=== PATIENT | male | born 1970 ===

== ENCOUNTER → 2021-09-20 17:10 | Outpatient (CLI) | payer OTHER, SELFPAY ==
[2021-09-21 19:48] LABS: COVID19 - ORCAS (NP or Nasal) Negative (Negative)
== END ==
PROVIDERS: Family Provider Family Medicine; PCP Physician Assistant Medical; Visit Provider Physician Assistant
DX: Z20.822 Contact with and (suspected) exposure to COVID-19 (principal)
CPT/HCPCS: U0003

== ENCOUNTER → 2021-12-27 11:00 | Outpatient (CLI) | payer OTHER, SELFPAY ==
--- NOTE | 2021-12-27 12:20 | DI.CT.S_ITS ---
PROCEDURE: CT MASTOID TEMPORAL INDICATIONS: Chronic mastoiditis, left ear COMPARISON: None. TECHNIQUE: Noncontrast 0.6 mm thick direct axial and coronal sections acquired through each temporal bone separately. FINDINGS: Image quality: Excellent. RIGHT: External auditory canal: Canal has a normal appearance. Middle ear: The middle ear structures, including the ossicles and tympanic membrane, appear normal. No abnormal fluid or soft tissue density. Inner ear: Inner ear is normally formed and appears unremarkable. Facial nerve appears normal throughout is course. Mastoids: Mastoid air cells are clear. LEFT: External auditory canal: Canal has a normal appearance. Middle ear: There is fluid and debris filling the tympanic cavity with partial sparing of the epitympanicum. Minimal fluid in debris noted at the ralph ad antrum. There is mild asymmetric blunting of the scutum. Ossicular chain intact. Tympanic membrane unremarkable Inner ear: Inner ear is normally formed and appears unremarkable. Facial nerve appears normal throughout its course. Mastoids: Debris and fluid fills the mastoid air cells with the septal osseous sclerosis, but no evidence of coalescence. MISCELLANEOUS: Visualized surrounding bones appear unremarkable. Visualized intracranial structures, including the cerebellopontine angle cisterns, appear normal. IMPRESSION: 1. Fluid and debris in the left middle ear with minimal blunting of the scutum but no ossicular chain erosion. While probably inflammatory, consider follow-up MRI to exclude cholesteatoma. 2. Fluid and debris in the left mastoid is consistent with inflammatory or postinflammatory debris. Mastoid sclerosis present without coalescence. Approved by: Saravanan Chavez M.D. on 12/27/2021 at 14:19
== END ==
PROVIDERS: Family Provider Family Medicine; PCP Physician Assistant Medical; Referring Provider Otolaryngology; Visit Provider Otolaryngology
DX: H70.12 Chronic mastoiditis, left ear (principal)
CPT/HCPCS: 70480

== ENCOUNTER → 2022-05-11 07:00 | Outpatient (CLI) | payer OTHER, SELFPAY ==
[2022-05-11 19:18] LABS: COVID19 - ORCAS (NP or Nasal) Negative (Negative)
== END ==
PROVIDERS: Family Provider Family Medicine; PCP Physician Assistant Medical; Visit Provider Physician Assistant Medical
DX: Z20.822 Contact with and (suspected) exposure to COVID-19 (principal)
CPT/HCPCS: U0003

== ENCOUNTER → 2022-08-28 11:00 | Outpatient (CLI) | payer OTHER, SELFPAY ==
--- NOTE | 2022-08-28 11:02 | DI.MRI.S_ITS ---
PROCEDURE: MR THORACIC SPINE WO CON INDICATIONS: Thoracic pain with radiculopathy, multiple traumas TECHNIQUE: Noncontrast sagittal T1 spine echo and T2 fast spin echo, sagittal STIR, and T2 fast spin echo through the thoracic spine. COMPARISON: None. FINDINGS: Image quality: Excellent. Alignment and Curvature: There is normal bony alignment. Bone Marrow: Vertebral body hemangiomas noted at T9 and T11. Vertebral body height and alignment is maintained. No marrow edema present Spinal Cord: Visualized spinal cord is normal in size and signal. Paraspinous Soft Tissues: No paravertebral masses. Miscellaneous: Small disc 2-3 mm central protrusion noted at T9-10 with inferior migration. Right subarticular protrusion at T8-9. Broad-based protrusion subarticular left at T11-12 all result in mild central stenosis. IMPRESSION: Small disc protrusions in the lower thoracic spine results in mild central stenosis without cord compression. Incidental vertebral body hemangiomas Approved by: Saravanan Chavez M.D. on 08/28/2022 at 14:37
== END ==
PROVIDERS: Family Provider Family Medicine; PCP Physician Assistant Medical; Referring Provider Physician Assistant; Visit Provider Physician Assistant
DX: M51.14 Intervertebral disc disorders with radiculopathy, thoracic region (principal); M48.04 Spinal stenosis, thoracic region; D18.09 Hemangioma of other sites
CPT/HCPCS: 72146

== ENCOUNTER → 2022-09-06 10:20 | Outpatient (CLI) | payer OTHER, SELFPAY ==
[2022-09-06 19:38] LABS: Add Manual Diff / Slide Review NO; Basophils Absolute Auto 100 /uL (0-100); Basophils Percent Auto 0.8 % (0-2); Eosinophils Absolute Auto 300 /uL (0-450); Eosinophils Percent Auto 3.3 % (2-4); Hematocrit 45.2 % (41-53); Hemoglobin 15.8 g/dL (13.5-17.5); Lymphocytes Absolute Auto 1500 /uL (1100-4500); Lymphocytes Percent Auto 18.7 % (25-40); Mean Corpuscular HGB Conc 34.9 % (30-36); Mean Corpuscular Hemoglobin 30.9 PG (26-34); Mean Corpuscular Volume 88.6 fL (80-100); Monocytes Absolute Auto 600 /uL (0-900); Monocytes Percent Auto 7.7 % (3-14); Neutrophils Absolute Auto 5500 /uL (1500-7000); Neutrophils Percent Auto 69.5 % (50-75); Platelet Count 310 X10^3/uL (150-400); Red Cell Distribution Width 13.7 % (11.6-14.8); White Blood Cell Count 7.9 X10^3/uL (4.5-11.0)
[2022-09-06 20:01] LABS: Alanine Aminotransferase 80 IU/L (<50); Albumin 4.3 g/dL (3.5-5.0); Albumin Globulin Ratio 1.5 (1.0-2.8); Alkaline Phosphatase 118 U/L (38-126); Aspartate Aminotransferase 45 IU/L (17-59); Bilirubin Total 0.6 mg/dL (0.2-1.3); Blood Urea Nitrogen 17 mg/dL (9-20); Calcium 9.4 mg/dL (8.4-10.2); Carbon Dioxide 29 mmol/L (22-32); Chloride 99 mmol/L (98-107); Cholesterol 285 mg/dL (140-199); Estimated Glomerular Filt Rate > 60 mL/min (>60); Globulin 2.9 g/dL (1.7-4.1); Glucose 99 mg/dL (70-100); HDL Cholesterol 38 mg/dL (40-60); HEMOLYSIS < 15 (0-50); LDL Cholesterol Calculated 218 mg/dL (<100); Potassium 4.3 mmol/L (3.4-5.1); Sodium 138 mmol/L (137-145); Total Protein 7.2 g/dL (6.3-8.2); Triglycerides 146 mg/dL (35-150)
[2022-09-06 20:12] LABS: Hemoglobin A1C% w Est Avg Glu 5.4 % (4.0-6.0)
[2022-09-06 20:31] LABS: Prostate Specific Antigen Scrn 1.25 ng/mL (0.1-4.0)
== END ==
PROVIDERS: Family Provider Family Medicine; PCP Physician Assistant; Visit Provider Physician Assistant
DX: Z13.220 Encounter for screening for lipoid disorders (principal); I10 Essential (primary) hypertension; Z12.5 Encounter for screening for malignant neoplasm of prostate
CPT/HCPCS: 80053; 80061; 83036; 85025; G0103

== ENCOUNTER 2022-09-14 10:38 | Emergency (ER) | payer OTHER, SELFPAY ==
[2022-09-14 10:50] VITALS: BP 164/99; PULSE 92; RESP 16; TEMP 35.8; O2SAT 98; BMI 31.4
[2022-09-14 11:23] LABS: Add Manual Diff / Slide Review NO; Basophils Absolute Auto 100 /uL (0-100); Basophils Percent Auto 0.6 % (0-2); Eosinophils Absolute Auto 200 /uL (0-450); Eosinophils Percent Auto 2.1 % (2-4); Hematocrit 43.8 % (41-53); Lymphocytes Absolute Auto 1300 /uL (1100-4500); Lymphocytes Percent Auto 15.9 % (25-40); Mean Corpuscular HGB Conc 34.3 % (30-36); Mean Corpuscular Hemoglobin 30.3 PG (26-34); Mean Corpuscular Volume 88.3 fL (80-100); Monocytes Absolute Auto 800 /uL (0-900); Monocytes Percent Auto 9.2 % (3-14); Neutrophils Absolute Auto 6000 /uL (1500-7000); Neutrophils Percent Auto 72.2 % (50-75); Platelet Count 188 X10^3/uL (150-400); Red Blood Cell Count 4.96 X10^6/uL (4.5-5.9); Red Cell Distribution Width 13.9 % (11.6-14.8); White Blood Cell Count 8.4 X10^3/uL (4.5-11.0)
[2022-09-14 11:29] LABS: Alanine Aminotransferase 236 IU/L (<50); Albumin 4.3 g/dL (3.5-5.0); Albumin Globulin Ratio 1.3 (1.0-2.8); Alkaline Phosphatase 179 U/L (38-126); Aspartate Aminotransferase 92 IU/L (17-59); BUN Creatinine Ratio 19.1 (6-22); Bilirubin Total 1.1 mg/dL (0.2-1.3); Blood Urea Nitrogen 17 mg/dL (9-20); Carbon Dioxide 27 mmol/L (22-32); Chloride 103 mmol/L (98-107); Estimated Glomerular Filt Rate > 60 mL/min (>60); Globulin 3.3 g/dL (1.7-4.1); Glucose 97 mg/dL (70-100); HEMOLYSIS 38 (0-50); Lipase 54 U/L (23-300); Potassium 3.9 mmol/L (3.4-5.1); Sodium 139 mmol/L (137-145); Total Protein 7.6 g/dL (6.3-8.2)
[2022-09-14] MEDS: BISACODYL 10 MG SUPP PR (12:48)
--- NOTE | 2022-09-14 13:00 | PC.NURSE ---
Patient inserting own suppository, instructed in how to do this.
--- NOTE | 2022-09-14 13:26 | DI.US.S_ITS ---
PROCEDURE: US ABDOMEN LIMITED INDICATIONS: RUQ, elevated transaminasesm, nausea TECHNIQUE: Real-time focused scanning was performed of the abdomen, with image documentation. COMPARISON: [facility], CT, CT ABDOMEN PELVIS W CON, 09/14/2022, 13:49. FINDINGS: Multifocal hypoechoic masses are seen within the liver as demonstrated on CT performed earlier the same day, highly suspicious for hepatic metastases. The gallbladder appears normal without gallstones or gallbladder wall thickening. There is no pericholecystic fluid. Sonographic Bui sign is negative. Common hepatic duct and common bile ducts are not well visualized secondary to bowel gas, but the common bile duct appears to measure up to 6 mm in diameter. Pancreas is not well visualized due to the presence of bowel gas. IMPRESSION: Multiple hypoechoic hepatic masses are highly suspicious for hepatic metastatic disease, better demonstrated on the CT of the abdomen and pelvis performed earlier the same day. Approved by: Guero Del Castillo M.D. on 09/14/2022 at 16:01
--- NOTE | 2022-09-14 13:35 | ED_ITS ---
HPI - Abdominal Pain <FAITH Jensen - Last Filed: 09/14/22 17:22> General Chief Complaint: Abdominal Pain Stated Complaint: ABD PAIN Time Seen by Provider: 09/14/22 12:28 Source: patient Mode of arrival: Ambulatory History of Present Illness HPI narrative: This is a 52-year-old gentleman who presents to the emergency department complaining of worsening abdominal pain over the last 1-2 weeks. Patient states that he had labs drawn on 09/06/2022 when he was having some mild abdominal pain, those came back with elevated cholesterol, mildly elevated ALT. Patient states he has had periumbilical hernia repair many years ago. Denies any other abdominal surgery. States that he is had intermittent abdominal pain with distention, states it is periumbilical, intermittently lower left quadrant but primarily in the right upper quadrant. He states his mother has history of severe gallstone issues. Related Data Previous Rx's Medication Instructions Recorded losartan 50 mg tablet 50 mg PO DAILY #30 tabs 07/06/22 cyclobenzaprine 10 mg tablet 10 mg PO TID PRN muscle spasm #30 08/20/22 tabs gabapentin 300 mg capsule 300 mg PO TID nerve pain #90 caps 08/20/22 oxycodone 10 mg tablet 10 mg PO BEDTIME PRN pain (scale 08/20/22 score 7-10) #5 tabs amoxicillin 875 mg-potassium 1 tab PO BID 7 days #14 tabs 09/14/22 clavulanate 125 mg tablet oxycodone 5 mg tablet 5 mg PO TID PRN pain #30 tabs 09/14/22 magnesium citrate 150 ml PO BID PRN constipation 09/17/22 #296 mL sertraline 25 mg tablet 25 mg PO .Q AM #30 tabs 09/17/22 Allergies Allergy/AdvReac Type Severity Reaction Status Date / Time lisinopril Allergy Unknown Verified 09/17/22 09:12 Review of Systems <FAITH Jensen - Last Filed: 09/14/22 17:22> Review of Systems Narrative: Review of systems is negative for acute abnormalities unless otherwise noted in HPI Patient History <FAITH Jensen - Last Filed: 09/14/22 17:22> Medical History Essential (primary) hypertension (~2017) Hearing loss History of recurrent ear infection Surgical History Anesthesia History of adenoidectomy History of ear surgery History of elbow surgery (~2014) History of hernia repair (~2005) History of placement of ear tubes History of tympanoplasty Family History Father History of heart disease Stroke Grandmother Cancer Social History Smoking Status: Former smoker Smoking Status: Former smoker alcohol intake frequency: holidays/special occasions only Substance Use Type: does not use Exam <FAITH Jensen - Last Filed: 09/14/22 17:22> Narrative Exam Narrative: Reviewed vitals signs and nursing notes. General: cooperative, uncomfortable, in no acute distress, well groomed HEENT: symmetrical facial expressions, moist mucous membranes Cardiovascular: regular rate and rhythm, no peripheral edema, warm extremities Respiratory: normal effort, able to speak in complete sentences, without wheezing, stridor, or abnormal breath sounds. No retractions or tachypnea. GI: abdomen soft, tender to palpation to the right upper quadrant and to the left lower quadrant, mildly distended, patient is slightly guarding without rebound tenderness or exquisite tenderness. MSK: moves all extremities, neurovascularly intact, no weakness, normal tone Skin: brisk capillary refill, without pallor or erythema Neuro: normal speech and cognition, A&O x3, ambulatory, clear speech Psych: mental status is grossly normal, congruent mood, normal affect, pleasant and cooperative Initial Vital Signs Initial Vital Signs: Vital Signs Temperature 96.4 F L 09/14/22 10:50 Pulse Rate 92 H 09/14/22 10:50 Respiratory Rate 16 09/14/22 10:50 Blood Pressure 164/99 H 09/14/22 10:50 Pulse Oximetry 98 09/14/22 10:50 Oxygen Delivery Method 09/14/22 10:50 <Lety Silva DO - Last Filed: 09/18/22 02:46> Initial Vital Signs Initial Vital Signs: Vital Signs Temperature 96.4 F L 09/14/22 10:50 Pulse Rate 92 H 09/14/22 10:50 Respiratory Rate 16 09/14/22 10:50 Blood Pressure 164/99 H 09/14/22 10:50 Pulse Oximetry 98 09/14/22 10:50 Oxygen Delivery Method 09/14/22 10:50 Course <Karla Jeri Enrique, [facility] - Last Filed: 09/14/22 17:22> Orders Ordered: Discontinued Medications Bisacodyl (Bisacodyl 10 Mg Supp) 10 mg NJ NOW ONE Stop: 09/14/22 12:29 Last Admin: 09/14/22 12:48 Dose: 10 mg Documented By: TR Lactated Ringer's (Lactated Ringers) 1,000 mls @ 1,000 mls/hr IV BOLUS ONE Stop: 09/14/22 14:33 Last Infusion: 09/14/22 15:32 Dose: 0 mls/hr Documented By: Admin: 09/14/22 13:58 Dose: 1,000 mls/hr Documented By: ELISHA Oxycodone HCl (Oxycodone Ir 5 Mg Tablet) 10 mg PO NOW ONE Stop: 09/14/22 16:47 Last Admin: 09/14/22 16:57 Dose: 10 mg Documented By: ELISHA Reevaluation(s) Reevaluation #1: Waiting for results from ultrasound and CT scan, lab work is resulting, patient reports that he feels well, denies any need for pain medication at this time Time: 14:30 Reevaluation #2: Reviewed CT results with Blank Anthony from patient's primary care office who called back stating that she has patient's to see today in the clinic and patient can follow-up with her primary care provider. Time: 15:51 Reevaluation #3: Consultation made with oncology over at [facility], oncologist recommends patient follow-up with Dr. Ontiveros as an outpatient, a consultation was placed by myself, ask his primary care provider to put in an official referral. Oncologist as for additional lab work which includes CEA, CA 19-199, and CT chest imaging. Patient is finishing these tests right now. Pt is to Follow-up with Dr. ontiveros next week after meeting with Danielle kauffman. He will need a social work order referral from the oncology office as well as a CT or ultrasound- guided biopsy.. Vital Signs Vital signs: Vital Signs - 8 hr 09/14/22 10:50 09/14/22 13:59 09/14/22 13:59 Temperature 96.4 F L Pulse Rate 92 H 88 Respiratory Rate 16 Blood Pressure 164/99 H 183/99 H Pulse Oximetry 98 99 Oxygen Delivery Method Room Air 09/14/22 15:50 09/14/22 15:50 09/14/22 15:53 Temperature Pulse Rate 79 Respiratory Rate Blood Pressure 195/106 H 171/86 H Pulse Oximetry 100 Oxygen Delivery Method 09/14/22 15:53 Temperature Pulse Rate 84 Respiratory Rate Blood Pressure Pulse Oximetry 98 Oxygen Delivery Method <Lety iSlva DO - Last Filed: 09/18/22 02:46> Orders Ordered: Discontinued Medications Bisacodyl (Bisacodyl 10 Mg Supp) 10 mg NJ NOW ONE Stop: 09/14/22 12:29 Last Admin: 09/14/22 12:48 Dose: 10 mg Documented By: TR Lactated Ringer's (Lactated Ringers) 1,000 mls @ 1,000 mls/hr IV BOLUS ONE Stop: 09/14/22 14:33 Last Infusion: 09/14/22 15:32 Dose: 0 mls/hr Documented By: Admin: 09/14/22 13:58 Dose: 1,000 mls/hr Documented By: ELISHA Oxycodone HCl (Oxycodone Ir 5 Mg Tablet) 10 mg PO NOW ONE Stop: 09/14/22 16:47 Last Admin: 09/14/22 16:57 Dose: 10 mg Documented By: ELISHA Vital Signs Vital signs: Vital Signs - 8 hr 09/14/22 10:50 09/14/22 13:59 09/14/22 13:59 Temperature 96.4 F L Pulse Rate 92 H 88 Respiratory Rate 16 Blood Pressure 164/99 H 183/99 H Pulse Oximetry 98 99 Oxygen Delivery Method Room Air 09/14/22 15:50 09/14/22 15:50 09/14/22 15:53 Temperature Pulse Rate 79 Respiratory Rate Blood Pressure 195/106 H 171/86 H Pulse Oximetry 100 Oxygen Delivery Method 09/14/22 15:53 Temperature Pulse Rate 84 Respiratory Rate Blood Pressure Pulse Oximetry 98 Oxygen Delivery Method MDM - Abdominal Pain <FAITH Jensen - Last Filed: 09/14/22 17:22> Lab Data Result diagrams: 09/14/22 11:00 09/14/22 11:00 Labs: Lab Results 09/14/22 09/14/22 09/14/22 Range/Units 11:00 11:00 11:00 WBC 8.4 (4.5-11.0) X10^3/uL RBC 4.96 (4.5-5.9) X10^6/uL Hgb 15.0 (13.5-17.5) g/dL Hct 43.8 (41-53) % MCV 88.3 (80-100) fL MCH 30.3 (26-34) PG MCHC 34.3 (30-36) % RDW 13.9 (11.6-14.8) % Plt Count 188 (150-400) X10^3/uL Neut % (Auto) 72.2 (50-75) % Lymph % (Auto) 15.9 L (25-40) % [place] % (Auto) 9.2 (3-14) % Eos % (Auto) 2.1 (2-4) % Baso % (Auto) 0.6 (0-2) % Neut # (Auto) 6000 (6068-3103) /uL Lymph # (Auto) 1300 (2478-1409) /uL [place] # (Auto) 800 (0-900) /uL Eos # (Auto) 200 (0-450) /uL Baso # (Auto) 100 (0-100) /uL PT (10.1-12.7) SECONDS INR (0.9-1.3) APTT Sodium 139 (137-145) mmol/L Potassium 3.9 (3.4-5.1) mmol/L Chloride 103 (98-107) mmol/L Carbon Dioxide 27 (22-32) mmol/L BUN 17 (9-20) mg/dL Creatinine 0.89 (0.66-1.25) mg/dL Estimated GFR > 60 (>60) mL/min BUN/Creatinine Ratio 19.1 (6-22) Glucose 97 (70-100) mg/dL Lactate (0.7-2.1) mmol/L Calcium 9.0 (8.4-10.2) mg/dL Magnesium (1.6-2.3) mg/dL Total Bilirubin 1.1 (0.2-1.3) mg/dL AST 92 H (17-59) IU/L ALT 236 H (<50) IU/L Alkaline Phosphatase 179 H D (38-126) U/L Total Creatine Kinase 76 (55-170) U/L CK-MB (CK-2) TNP CK-MB (CK-2) Rel Index TNP Troponin I < 0.012 (0.01-0.034) ng/mL C-Reactive Protein 1.4 H (<1.0) mg/dL Total Protein 7.6 (6.3-8.2) g/dL Albumin 4.3 (3.5-5.0) g/dL Globulin 3.3 (1.7-4.1) g/dL Albumin/Globulin Ratio 1.3 (1.0-2.8) Lipase 54 (23-300) U/L Carcinoembryonic Ag (0.1-3.0) ng/mL CA 19-9 Antigen Procalcitonin 0.09 (<0.5) ng/mL Urine Color Urine Appearance Urine pH (4.5-8.0) Ur Specific [place] (1.000-1.035) Urine Protein (Negative) Urine Glucose (UA) (Negative) g/dL Urine Ketones (NEGATIVE) Urine Occult Blood (Negative) Urine Nitrate (Negative) Urine Bilirubin (NEGATIVE) Urine Urobilinogen (0.2) E.U./dL Ur Leukocyte Esterase (NEGATIVE) Urine RBC (0-5/HPF) Urine WBC (0-5/HPF) Ur Squamous Epith Cells (0-5/HPF) Urine Bacteria (None) Ur Culture Indicated? 09/14/22 09/14/22 09/14/22 Range/Units 11:00 11:00 11:00 WBC (4.5-11.0) X10^3/uL RBC (4.5-5.9) X10^6/uL Hgb (13.5-17.5) g/dL Hct (41-53) % MCV (80-100) fL MCH (26-34) PG MCHC (30-36) % RDW (11.6-14.8) % Plt Count (150-400) X10^3/uL Neut % (Auto) (50-75) % Lymph % (Auto) (25-40) % [place] % (Auto) (3-14) % Eos % (Auto) (2-4) % Baso % (Auto) (0-2) % Neut # (Auto) (6053-3549) /uL Lymph # (Auto) (5167-9754) /uL [place] # (Auto) (0-900) /uL Eos # (Auto) (0-450) /uL Baso # (Auto) (0-100) /uL PT 12.0 (10.1-12.7) SECONDS INR 1.0 (0.9-1.3) APTT Cancelled Sodium (137-145) mmol/L Potassium (3.4-5.1) mmol/L Chloride (98-107) mmol/L Carbon Dioxide (22-32) mmol/L BUN (9-20) mg/dL Creatinine (0.66-1.25) mg/dL Estimated GFR (>60) mL/min BUN/Creatinine Ratio (6-22) Glucose (70-100) mg/dL Lactate 1.1 (0.7-2.1) mmol/L Calcium (8.4-10.2) mg/dL Magnesium 2.2 (1.6-2.3) mg/dL Total Bilirubin (0.2-1.3) mg/dL AST (17-59) IU/L ALT (<50) IU/L Alkaline Phosphatase (38-126) U/L Total Creatine Kinase (55-170) U/L CK-MB (CK-2) CK-MB (CK-2) Rel Index Troponin I (0.01-0.034) ng/mL C-Reactive Protein (<1.0) mg/dL Total Protein (6.3-8.2) g/dL Albumin (3.5-5.0) g/dL Globulin (1.7-4.1) g/dL Albumin/Globulin Ratio (1.0-2.8) Lipase (23-300) U/L Carcinoembryonic Ag (0.1-3.0) ng/mL CA 19-9 Antigen Procalcitonin (<0.5) ng/mL Urine Color Urine Appearance Urine pH (4.5-8.0) Ur Specific [place] (1.000-1.035) Urine Protein (Negative) Urine Glucose (UA) (Negative) g/dL Urine Ketones (NEGATIVE) Urine Occult Blood (Negative) Urine Nitrate (Negative) Urine Bilirubin (NEGATIVE) Urine Urobilinogen (0.2) E.U./dL Ur Leukocyte Esterase (NEGATIVE) Urine RBC (0-5/HPF) Urine WBC (0-5/HPF) Ur Squamous Epith Cells (0-5/HPF) Urine Bacteria (None) Ur Culture Indicated? 09/14/22 09/14/22 09/14/22 Range/Units 13:26 14:25 15:45 WBC (4.5-11.0) X10^3/uL RBC (4.5-5.9) X10^6/uL Hgb (13.5-17.5) g/dL Hct (41-53) % MCV (80-100) fL MCH (26-34) PG MCHC (30-36) % RDW (11.6-14.8) % Plt Count (150-400) X10^3/uL Neut % (Auto) (50-75) % Lymph % (Auto) (25-40) % [place] % (Auto) (3-14) % Eos % (Auto) (2-4) % Baso % (Auto) (0-2) % Neut # (Auto) (7969-0153) /uL Lymph # (Auto) (5598-2614) /uL [place] # (Auto) (0-900) /uL Eos # (Auto) (0-450) /uL Baso # (Auto) (0-100) /uL PT (10.1-12.7) SECONDS INR (0.9-1.3) APTT Sodium (137-145) mmol/L Potassium (3.4-5.1) mmol/L Chloride (98-107) mmol/L Carbon Dioxide (22-32) mmol/L BUN (9-20) mg/dL Creatinine (0.66-1.25) mg/dL Estimated GFR (>60) mL/min BUN/Creatinine Ratio (6-22) Glucose (70-100) mg/dL Lactate (0.7-2.1) mmol/L Calcium (8.4-10.2) mg/dL Magnesium (1.6-2.3) mg/dL Total Bilirubin (0.2-1.3) mg/dL AST (17-59) IU/L ALT (<50) IU/L Alkaline Phosphatase (38-126) U/L Total Creatine Kinase (55-170) U/L CK-MB (CK-2) CK-MB (CK-2) Rel Index Troponin I (0.01-0.034) ng/mL C-Reactive Protein (<1.0) mg/dL Total Protein (6.3-8.2) g/dL Albumin (3.5-5.0) g/dL Globulin (1.7-4.1) g/dL Albumin/Globulin Ratio (1.0-2.8) Lipase (23-300) U/L Carcinoembryonic Ag 17.9 H (0.1-3.0) ng/mL CA 19-9 Antigen QNS Procalcitonin (<0.5) ng/mL Urine Color Yellow Urine Appearance Clear Urine pH 6.5 (4.5-8.0) Ur Specific [place] <=1.005 (1.000-1.035) Urine Protein Negative (Negative) Urine Glucose (UA) Negative (Negative) g/dL Urine Ketones 1+ H (NEGATIVE) Urine Occult Blood Negative (Negative) Urine Nitrate Negative (Negative) Urine Bilirubin Negative (NEGATIVE) Urine Urobilinogen 0.2 (0.2) E.U./dL Ur Leukocyte Esterase Negative (NEGATIVE) Urine RBC None seen (0-5/HPF) Urine WBC None seen (0-5/HPF) Ur Squamous Epith Cells 1-5 /hpf (0-5/HPF) Urine Bacteria None seen (None) Ur Culture Indicated? Cult not indicated Imaging Data CT scan - abdomen/pelvis: Radiologist's Impression: PROCEDURE:? CT ABDOMEN PELVIS W CON ? INDICATIONS:? gallstones and diverticulitis? LLQ tender, RUQ tender ? TECHNIQUE:? After the administration of oral and intravenous contrast, axial sections were acquired from the lung bases to the pubic symphysis.? Coronal and sagittal reformats were performed.? For radiation dose reduction, the following was used:? automated exposure control, adjustment of mA and/or kV according to patient size.? ? COMPARISON:None. ? FINDINGS:? Image quality:? Excellent.? ? Lung bases:? Unremarkable except for a 2 mm far peripheral nodule seen within the right mid lung, middle lobe, series 3, image 3.? .? ? Heart:? No significant findings. ? ? ABDOMEN: Liver:? Multifocal hepatic metastatic disease.? This is comprised of small and moderate-sized solid masses scattered within the liver parenchyma of all hepatic segments.? No biliary distention is associated..? ? Gallbladder:? Normal.? ? Biliary ducts:? Unremarkable.? ? Pancreas:? There is a pancreatic head mass which extends into the fatty soft tissues of the retroperitoneum and appears to abut and possibly invade the anterior border of the main portal vein just above its origin, as seen on series 2, image 32. A small nodule lies at the pete hepatis measuring slightly less than 1 cm and extension of tumor from the pancreatic head mass into the fatty soft tissues extends to abut the posterior border of the gastric antrum.? There are several small lymph nodes and indistinctly marginated lymph nodes at the posterior aortocaval space and retrocaval space seen, for example, series 2, image 45.? This is a worrisome finding for representing additional early metastatic disease. Spleen:? Unremarkable.? ? Adrenal Glands:? Unremarkable.? ? Kidneys and Ureters:? Unremarkable.? ? ? Stomach and Bowel:? Stomach, small bowel loops, and colon are unremarkable.? Peritoneum:? No abnormal intraperitoneal fluid.? No free air.? ? Ventral Wall: ? No hernia.? Abdominal Nodes:? No retroperitoneal or mesenteric adenopathy by size criteria but the presence of an increased number of small nodes and several indistinctly marginated nodes discussed above at the retroperitoneum, aortocaval space and retrocaval space raises concern for early felix metastatic disease..? Vessels:? Aorta and inferior vena cava are normal in size.? ? PELVIS: Pelvic Organs:? Unremarkable.? ? Bladder:? Unremarkable.? ? Pelvic Nodes: No enlarged lymph nodes.? Miscellaneous: No inguinal hernias are seen. ? ? Extensive sigmoid diverticulosis without definite acute diverticulitis is present.? There is a slight amount of free fluid deep within the lower posterior midline pelvis. ? Bones:? Unremarkable.? ? ? IMPRESSION:? ? ? 1.? Pancreatic head mass.? Extension of tumor from this mass into the adjacent retroperitoneal fat and along the anterior border of the main portal vein. ? 2.? Multifocal hepatic metastatic disease without biliary distension, involving all hepatic segments. ? 3.? An increased number of small nodes and several indistinctly marginated nodes are present at the aortocaval space and retrocaval space, worrisome for early felix metastatic disease. ? 4.? Single identified 2 mm nonspecific lung nodule right middle lobe peripherally, potentially an early manifestation of pulmonary metastatic disease. ? 5.? Extensive sigmoid diverticulosis but without definite acute diverticulitis at this time.? A slight amount of free peritoneal fluid is seen deep within the lower posterior midline pelvis.? ? Dictated by: Johnnie Owen M.D. on 09/14/2022 at 15:06 ? ? Approved by: Johnnie Owen M.D. on 09/14/2022 at 15:17 ? Chest Ct: Radiologist's Impression: PROCEDURE:? CT CHEST W CON ? INDICATIONS:? malignancy, eval for metastasis ? TECHNIQUE:? After the administration of intravenous contrast, 5 mm thick sections acquired from the pulmonary apices to the posterior costophrenic angles.? 1 mm axial lung, 5 mm thick coronal and sagittal reformats and 7 mm axial MIP were acquired.? For radiation dose reduction, the following was used:? automated exposure control, adjustment of mA and/or kV according to patient size.? ? COMPARISON:? [facility], US, US ABDOMEN LIMITED, 09/14/2022, 15:12.? [facility], CT, CT ABDOMEN PELVIS W CON, 09/14/2022, 13:49. ? FINDINGS:? Image quality:? Excellent.? ? Lungs and pleura:? No acute air space opacities that would suggest presence of pneumonia. ?The 2 mm far peripheral right middle lobe pulmonary nodule seen during CT scanning earlier same day is again noted, and within the anterior margin of the left upper lobe seen on there is a similar sized nodule perhaps measuring 3 mm, and then at the more superior far posterior border of the left upper lobe abutting the high margin of the major fissure there is a 2nd similar size nodule which measures 2 x 3 mm, 01/5913.? Finally, at the lateral border of the right lower lobe more , mid chest level, there is a 2 x 3 mm nodule ().? No pleural effusions or pneumothorax.? Central and peripheral airways are patent and normal in caliber.? ? Mediastinum:? Heart size is normal.? No pericardial effusion.? No mediastinal or hilar adenopathy by size criteria.? Thoracic aorta and central pulmonary arteries are normal in size.? Esophagus is normal in caliber.? No hiatal hernia.? ? Bones and chest wall:? No suspicious bony lesions.? No vertebral body compression fractures.? No axillary or supraclavicular adenopathy by size criteria. ? Abdomen:? Visualized upper abdominal solid organs appear normal.? Upper abdominal bowel loops are normal in caliber.? ? IMPRESSION:? There are several nonspecific small nodules within the lung parenchyma located peripherally, both within the right and left hemithorax.? In this clinical circumstance early pulmonary metastatic disease is suspected.? The small nodules would likely not be visible by PET-CT scanning ? ? Dictated by: Johnnie Owen M.D. on 09/14/2022 at 16:28 ? ? Approved by: Johnnie Owen M.D. on 09/14/2022 at 16:41 ? MDM Narrative Medical decision making narrative: This is a 52-year-old male who presents to the emergency department with periumbilical pain, right upper quadrant pain which has been ongoing for the last few weeks but became significantly worse over the last 3-4 days. Patient's lab work today came back with concerns about his elevated liver enzymes which are new since his lab work on 09/06/2022. Today his AST is 92, 1 week ago is 45, ALT was 236, ALT previously was 80, alk phos was 179, previously is 118, CRP is mildly elevated at 1.4, lipase is 54, procalcitonin 0.09. UA is negative for WBCs, leukocyte esterase and RBCs. No leukocytosis or anemia. Patient had tenderness to the right upper quadrant and periumbilical region. Abdominal ultrasound shows multiple hyperechoic hepatic masses and is highly suspicious for hepatic metastatic disease, CT of abdomen was completed just prior to this and results showed a pancreatic head mass. Extension of tumor from this mass into the adjacent retroperitoneal fat and along the anterior border of the main portal vein. Multifocal hepatic metastatic disease without biliary distension, involving all hepatic segments. An increased number of small nodes and several indistinctly marginated nodes are present at the aortocaval space and retrocaval space, worrisome for early felix metastatic disease. Single identified 2 mm nonspecific lung nodule right middle lobe peripherally, potentially an early manifestation of pulmonary metastatic disease. Extensive sigmoid diverticulosis but without definite acute diverticulitis at this time. A slight amount of free peritoneal fluid is seen deep within the lower posterior midline pelvis. A CT chest was then ordered which shows several nonspecific small nodules within the lung parenchyma located peripherally, both within the right and left hemithorax. Early pulmonary metastatic disease suspected. These results were discussed with Blank from patient's primary care office who is arranging oncology referral for the patient. I spoke with Oncology for the hospital who recommends patient follow-up urgently with Dr. Harmon, Blank placed a referral to Dr. Ontiveros and I placed a consultation although this conversation with the on-call oncologist who told Dr. Ontiveros is likely the only method of communication that Dr. Ontiveros received. Patient will need an ultrasound guided or CT-guided biopsy, this will be completed at oncology. Patient mentioned interest in [facility], Blank from his primary care office will place referrals to both and send all imaging completed here today. Patient understands to follow-up with Dr. Kauffman, these results were discussed with him and his significant other at length,. Patient had mild tenderness to the lower left quadrant with evidence of diverticulosis without diverticulitis but some fluid was visualized in his pelvis. I gave him an antibiotic if he develops any worsening tenderness to this region. Patient lives on [facility], oncology follow-up is going to be difficult for him. Patient was given strict return precautions for any worsening of his symptoms. Was almost out of oxycodone, he has history of chronic back pain with recent MRI of lumbar spine which shows bulging disc. Patient will follow-up accordingly and all of his results were discussed with him along with the lab results to corresponding providers today. <Lety Silva, DO - Last Filed: 09/18/22 02:46> Lab Data Labs: Lab Results 09/14/22 09/14/22 09/14/22 Range/Units 11:00 11:00 11:00 WBC 8.4 (4.5-11.0) X10^3/uL RBC 4.96 (4.5-5.9) X10^6/uL Hgb 15.0 (13.5-17.5) g/dL Hct 43.8 (41-53) % MCV 88.3 (80-100) fL MCH 30.3 (26-34) PG MCHC 34.3 (30-36) % RDW 13.9 (11.6-14.8) % Plt Count 188 (150-400) X10^3/uL Neut % (Auto) 72.2 (50-75) % Lymph % (Auto) 15.9 L (25-40) % [place] % (Auto) 9.2 (3-14) % Eos % (Auto) 2.1 (2-4) % Baso % (Auto) 0.6 (0-2) % Neut # (Auto) 6000 (9609-2534) /uL Lymph # (Auto) 1300 (8930-3684) /uL [place] # (Auto) 800 (0-900) /uL Eos # (Auto) 200 (0-450) /uL Baso # (Auto) 100 (0-100) /uL PT (10.1-12.7) SECONDS INR (0.9-1.3) APTT Sodium 139 (137-145) mmol/L Potassium 3.9 (3.4-5.1) mmol/L Chloride 103 (98-107) mmol/L Carbon Dioxide 27 (22-32) mmol/L BUN 17 (9-20) mg/dL Creatinine 0.89 (0.66-1.25) mg/dL Estimated GFR > 60 (>60) mL/min BUN/Creatinine Ratio 19.1 (6-22) Glucose 97 (70-100) mg/dL Lactate (0.7-2.1) mmol/L Calcium 9.0 (8.4-10.2) mg/dL Magnesium (1.6-2.3) mg/dL Total Bilirubin 1.1 (0.2-1.3) mg/dL AST 92 H (17-59) IU/L ALT 236 H (<50) IU/L Alkaline Phosphatase 179 H D (38-126) U/L Total Creatine Kinase 76 (55-170) U/L CK-MB (CK-2) TNP CK-MB (CK-2) Rel Index TNP Troponin I < 0.012 (0.01-0.034) ng/mL C-Reactive Protein 1.4 H (<1.0) mg/dL Total Protein 7.6 (6.3-8.2) g/dL Albumin 4.3 (3.5-5.0) g/dL Globulin 3.3 (1.7-4.1) g/dL Albumin/Globulin Ratio 1.3 (1.0-2.8) Lipase 54 (23-300) U/L Carcinoembryonic Ag (0.1-3.0) ng/mL CA 19-9 Antigen Procalcitonin 0.09 (<0.5) ng/mL Urine Color Urine Appearance Urine pH (4.5-8.0) Ur Specific [place] (1.000-1.035) Urine Protein (Negative) Urine Glucose (UA) (Negative) g/dL Urine Ketones (NEGATIVE) Urine Occult Blood (Negative) Urine Nitrate (Negative) Urine Bilirubin (NEGATIVE) Urine Urobilinogen (0.2) E.U./dL Ur Leukocyte Esterase (NEGATIVE) Urine RBC (0-5/HPF) Urine WBC (0-5/HPF) Ur Squamous Epith Cells (0-5/HPF) Urine Bacteria (None) Ur Culture Indicated? 09/14/22 09/14/22 09/14/22 Range/Units 11:00 11:00 11:00 WBC (4.5-11.0) X10^3/uL RBC (4.5-5.9) X10^6/uL Hgb (13.5-17.5) g/dL Hct (41-53) % MCV (80-100) fL MCH (26-34) PG MCHC (30-36) % RDW (11.6-14.8) % Plt Count (150-400) X10^3/uL Neut % (Auto) (50-75) % Lymph % (Auto) (25-40) % [place] % (Auto) (3-14) % Eos % (Auto) (2-4) % Baso % (Auto) (0-2) % Neut # (Auto) (2003-7134) /uL Lymph # (Auto) (8058-0609) /uL [place] # (Auto) (0-900) /uL Eos # (Auto) (0-450) /uL Baso # (Auto) (0-100) /uL PT 12.0 (10.1-12.7) SECONDS INR 1.0 (0.9-1.3) APTT Cancelled Sodium (137-145) mmol/L Potassium (3.4-5.1) mmol/L Chloride (98-107) mmol/L Carbon Dioxide (22-32) mmol/L BUN (9-20) mg/dL Creatinine (0.66-1.25) mg/dL Estimated GFR (>60) mL/min BUN/Creatinine Ratio (6-22) Glucose (70-100) mg/dL Lactate 1.1 (0.7-2.1) mmol/L Calcium (8.4-10.2) mg/dL Magnesium 2.2 (1.6-2.3) mg/dL Total Bilirubin (0.2-1.3) mg/dL AST (17-59) IU/L ALT (<50) IU/L Alkaline Phosphatase (38-126) U/L Total Creatine Kinase (55-170) U/L CK-MB (CK-2) CK-MB (CK-2) Rel Index Troponin I (0.01-0.034) ng/mL C-Reactive Protein (<1.0) mg/dL Total Protein (6.3-8.2) g/dL Albumin (3.5-5.0) g/dL Globulin (1.7-4.1) g/dL Albumin/Globulin Ratio (1.0-2.8) Lipase (23-300) U/L Carcinoembryonic Ag (0.1-3.0) ng/mL CA 19-9 Antigen Procalcitonin (<0.5) ng/mL Urine Color Urine Appearance Urine pH (4.5-8.0) Ur Specific [place] (1.000-1.035) Urine Protein (Negative) Urine Glucose (UA) (Negative) g/dL Urine Ketones (NEGATIVE) Urine Occult Blood (Negative) Urine Nitrate (Negative) Urine Bilirubin (NEGATIVE) Urine Urobilinogen (0.2) E.U./dL Ur Leukocyte Esterase (NEGATIVE) Urine RBC (0-5/HPF) Urine WBC (0-5/HPF) Ur Squamous Epith Cells (0-5/HPF) Urine Bacteria (None) Ur Culture Indicated? 09/14/22 09/14/22 09/14/22 Range/Units 13:26 14:25 15:45 WBC (4.5-11.0) X10^3/uL RBC (4.5-5.9) X10^6/uL Hgb (13.5-17.5) g/dL Hct (41-53) % MCV (80-100) fL MCH (26-34) PG MCHC (30-36) % RDW (11.6-14.8) % Plt Count (150-400) X10^3/uL Neut % (Auto) (50-75) % Lymph % (Auto) (25-40) % [place] % (Auto) (3-14) % Eos % (Auto) (2-4) % Baso % (Auto) (0-2) % Neut # (Auto) (7996-0514) /uL Lymph # (Auto) (4133-0932) /uL [place] # (Auto) (0-900) /uL Eos # (Auto) (0-450) /uL Baso # (Auto) (0-100) /uL PT (10.1-12.7) SECONDS INR (0.9-1.3) APTT Sodium (137-145) mmol/L Potassium (3.4-5.1) mmol/L Chloride (98-107) mmol/L Carbon Dioxide (22-32) mmol/L BUN (9-20) mg/dL Creatinine (0.66-1.25) mg/dL Estimated GFR (>60) mL/min BUN/Creatinine Ratio (6-22) Glucose (70-100) mg/dL Lactate (0.7-2.1) mmol/L Calcium (8.4-10.2) mg/dL Magnesium (1.6-2.3) mg/dL Total Bilirubin (0.2-1.3) mg/dL AST (17-59) IU/L ALT (<50) IU/L Alkaline Phosphatase (38-126) U/L Total Creatine Kinase (55-170) U/L CK-MB (CK-2) CK-MB (CK-2) Rel Index Troponin I (0.01-0.034) ng/mL C-Reactive Protein (<1.0) mg/dL Total Protein (6.3-8.2) g/dL Albumin (3.5-5.0) g/dL Globulin (1.7-4.1) g/dL Albumin/Globulin Ratio (1.0-2.8) Lipase (23-300) U/L Carcinoembryonic Ag 17.9 H (0.1-3.0) ng/mL CA 19-9 Antigen QNS Procalcitonin (<0.5) ng/mL Urine Color Yellow Urine Appearance Clear Urine pH 6.5 (4.5-8.0) Ur Specific [place] <=1.005 (1.000-1.035) Urine Protein Negative (Negative) Urine Glucose (UA) Negative (Negative) g/dL Urine Ketones 1+ H (NEGATIVE) Urine Occult Blood Negative (Negative) Urine Nitrate Negative (Negative) Urine Bilirubin Negative (NEGATIVE) Urine Urobilinogen 0.2 (0.2) E.U./dL Ur Leukocyte Esterase Negative (NEGATIVE) Urine RBC None seen (0-5/HPF) Urine WBC None seen (0-5/HPF) Ur Squamous Epith Cells 1-5 /hpf (0-5/HPF) Urine Bacteria None seen (None) Ur Culture Indicated? Cult not indicated Discharge Plan Departure Patient Disposition: Home Clinical Impression: Pancreatic mass, Hepatic metastasis, Lung nodule, Diverticulosis Instructions: Pancreatic Cancer Activity Restrictions/Additional Instructions: Ramin, thank you for coming in today, I am sorry for the findings today as well as for your symptoms. On CT scan, a pancreatic mass was found, as well as multiple spots on your liver, and some small nodules on both sides of your lung tissue. Please schedule follow-up with Shanika or at the earliest appointment, ensure that this is urgent, please also call to schedule your 1st appointment with Dr. Ontiveros, it is pronounced Yin, and this is a great oncologist through the [facility] here at [facility]. Shanika Whitfield will forward your referral, I put a consultation in and spoke with oncologist who gave him your information so that this can be followed up on as soon as possible. Please call Saturday morning to see if you can see Shanika 1st thing, please also call to see when you can get into the oncology office to see Dr. Ontiveros. This should be fairly easy to navigate however I am not sure how it goes. Please call with any questions and can help from this side but your primary care office can do a great job as well. I have sent 30 tabs of 5 mg oxycodone to [facility] as well as a bigger container of MiraLax. Please use this daily to help prevent any constipation, stay hydrated, if you have blood in your stool or any other severe change, please come back to the emergency department so we can help you through that. *What to do: *Please continue to take your regular medications as directed. [ x] New medication prescriptions sent to your pharmacy: [ [facility]] [ ] New medication written as a paper prescription [ ] No new medications given *Please follow up with your primary care provider in 2-3 days, call for an appointment. Let them know you were seen in the Emergency Department and that we asked that you be seen for follow-up. We will electronically transmit a record of today's note if your PCP is in our system *If you do not have a primary care provider please contact [phone] to establish care with one of the [facility] primary care providers. *Return to Emergency Department if you should have any new, worsening, or concerning symptoms, such as [fever greater than 101F, chills, worsening pain, persistent vomiting or other bothersome symptoms]. Prescriptions: New oxycodone 5 mg tablet 5 mg PO TID PRN (Reason: pain) Qty: 30 0RF amoxicillin-pot clavulanate 875-125 mg tablet 1 tab PO BID 7 Days Qty: 14 0RF No Action sertraline 25 mg tablet 25 mg PO .Q AM Qty: 30 2RF magnesium citrate Solution 150 ml PO BID PRN (Reason: constipation) Qty: 296 0RF gabapentin 300 mg capsule 300 mg PO TID Qty: 90 2RF cyclobenzaprine 10 mg tablet 10 mg PO TID PRN (Reason: muscle spasm) Qty: 30 1RF oxycodone 10 mg tablet 10 mg PO BEDTIME MDD 10mg PRN (Reason: pain (scale score 7-10)) Qty: 5 0RF losartan 50 mg tablet 50 mg PO DAILY Qty: 30 5RF Referrals: [facility] [Outside] [facility] [Outside] Shanika Whitfield PA-C [Primary Care Provider] - Natividad Ontiveros MD [Physician] - Visit Report Forms: Patient Portal/API <Lety Silva DO - Last Filed: 09/18/22 02:46> [facility] ED Attending Bcature Attestation: I was immediately available in the department for consultation. Documentation has been reviewed. I agree with assessment and plan.
--- NOTE | 2022-09-14 13:35 | DI.CT.S_ITS ---
PROCEDURE: CT ABDOMEN PELVIS W CON INDICATIONS: gallstones and diverticulitis? LLQ tender, RUQ tender TECHNIQUE: After the administration of oral and intravenous contrast, axial sections were acquired from the lung bases to the pubic symphysis. Coronal and sagittal reformats were performed. For radiation dose reduction, the following was used: automated exposure control, adjustment of mA and/or kV according to patient size. COMPARISON:None. FINDINGS: Image quality: Excellent. Lung bases: Unremarkable except for a 2 mm far peripheral nodule seen within the right mid lung, middle lobe, series 3, image 3. . Heart: No significant findings. ABDOMEN: Liver: Multifocal hepatic metastatic disease. This is comprised of small and moderate-sized solid masses scattered within the liver parenchyma of all hepatic segments. No biliary distention is associated.. Gallbladder: Normal. Biliary ducts: Unremarkable. Pancreas: There is a pancreatic head mass which extends into the fatty soft tissues of the retroperitoneum and appears to abut and possibly invade the anterior border of the main portal vein just above its origin, as seen on series 2, image 32. A small nodule lies at the pete hepatis measuring slightly less than 1 cm and extension of tumor from the pancreatic head mass into the fatty soft tissues extends to abut the posterior border of the gastric antrum. There are several small lymph nodes and indistinctly marginated lymph nodes at the posterior aortocaval space and retrocaval space seen, for example, series 2, image 45. This is a worrisome finding for representing additional early metastatic disease. Spleen: Unremarkable. Adrenal Glands: Unremarkable. Kidneys and Ureters: Unremarkable. Stomach and Bowel: Stomach, small bowel loops, and colon are unremarkable. Peritoneum: No abnormal intraperitoneal fluid. No free air. Ventral Wall: No hernia. Abdominal Nodes: No retroperitoneal or mesenteric adenopathy by size criteria but the presence of an increased number of small nodes and several indistinctly marginated nodes discussed above at the retroperitoneum, aortocaval space and retrocaval space raises concern for early felix metastatic disease.. Vessels: Aorta and inferior vena cava are normal in size. PELVIS: Pelvic Organs: Unremarkable. Bladder: Unremarkable. Pelvic Nodes: No enlarged lymph nodes. Miscellaneous: No inguinal hernias are seen. Extensive sigmoid diverticulosis without definite acute diverticulitis is present. There is a slight amount of free fluid deep within the lower posterior midline pelvis. Bones: Unremarkable. IMPRESSION: 1. Pancreatic head mass. Extension of tumor from this mass into the adjacent retroperitoneal fat and along the anterior border of the main portal vein. 2. Multifocal hepatic metastatic disease without biliary distension, involving all hepatic segments. 3. An increased number of small nodes and several indistinctly marginated nodes are present at the aortocaval space and retrocaval space, worrisome for early felix metastatic disease. 4. Single identified 2 mm nonspecific lung nodule right middle lobe peripherally, potentially an early manifestation of pulmonary metastatic disease. 5. Extensive sigmoid diverticulosis but without definite acute diverticulitis at this time. A slight amount of free peritoneal fluid is seen deep within the lower posterior midline pelvis. Dictated by: Johnnie Owen M.D. on 09/14/2022 at 15:06 Approved by: Johnnie Owen M.D. on 09/14/2022 at 15:17
[2022-09-14] MEDS: LACTATED RINGERS 1,000 ML 1000 ML IV (13:58)
[2022-09-14 13:59] VITALS: BP 183/99; PULSE 88; O2SAT 99
[2022-09-14 14:10] LABS: Lactate (Lactic Acid) 1.1 mmol/L (0.7-2.1)
[2022-09-14 14:14] LABS: C-Reactive Protein Quant 1.4 mg/dL (<1.0); Creatine Kinase 76 U/L (55-170)
[2022-09-14 14:23] LABS: Troponin I < 0.012 ng/mL (0.01-0.034)
[2022-09-14 14:28] LABS: Procalcitonin 0.09 ng/mL (<0.5)
[2022-09-14 14:35] LABS: Appearance Urine UA CLEAR; Bilirubin Urine UA NEGATIVE (NEGATIVE); Color Urine UA YELLOW; Glucose Urine UA NEGATIVE (Negative); Ketones Urine UA 1+ (NEGATIVE); Leukocyte Esterase Urine UA NEGATIVE (NEGATIVE); Nitrite Urine UA NEGATIVE (Negative); Occult Blood Urine UA NEGATIVE (Negative); Protein Urine UA NEGATIVE (Negative); Specific Gravity Urine UA <=1.005 (1.000-1.035); Urobilinogen Urine UA 0.2 E.U./dL (0.2); pH Urine UA 6.5 (4.5-8.0)
[2022-09-14 14:56] LABS: Bacteria Urine None Seen; Culture Indicated Urine Cult Not Indicated; RBC Urine None Seen (0-5/HPF); Squamous Epithelial Cell Urine 1-5 /HPF (0-5/HPF); WBC Urine None Seen (0-5/HPF)
[2022-09-14 15:10] LABS: Magnesium 2.2 mg/dL (1.6-2.3)
--- NOTE | 2022-09-14 15:48 | DI.CT.S_ITS ---
PROCEDURE: CT CHEST W CON INDICATIONS: malignancy, eval for metastasis TECHNIQUE: After the administration of intravenous contrast, 5 mm thick sections acquired from the pulmonary apices to the posterior costophrenic angles. 1 mm axial lung, 5 mm thick coronal and sagittal reformats and 7 mm axial MIP were acquired. For radiation dose reduction, the following was used: automated exposure control, adjustment of mA and/or kV according to patient size. COMPARISON: [facility], US, US ABDOMEN LIMITED, 09/14/2022, 15:12. [facility], CT, CT ABDOMEN PELVIS W CON, 09/14/2022, 13:49. FINDINGS: Image quality: Excellent. Lungs and pleura: No acute air space opacities that would suggest presence of pneumonia. The 2 mm far peripheral right middle lobe pulmonary nodule seen during CT scanning earlier same day is again noted, and within the anterior margin of the left upper lobe seen on there is a similar sized nodule perhaps measuring 3 mm, and then at the more superior far posterior border of the left upper lobe abutting the high margin of the major fissure there is a 2nd similar size nodule which measures 2 x 3 mm, 01/5913. Finally, at the lateral border of the right lower lobe more , mid chest level, there is a 2 x 3 mm nodule (3/193). No pleural effusions or pneumothorax. Central and peripheral airways are patent and normal in caliber. Mediastinum: Heart size is normal. No pericardial effusion. No mediastinal or hilar adenopathy by size criteria. Thoracic aorta and central pulmonary arteries are normal in size. Esophagus is normal in caliber. No hiatal hernia. Bones and chest wall: No suspicious bony lesions. No vertebral body compression fractures. No axillary or supraclavicular adenopathy by size criteria. Abdomen: Visualized upper abdominal solid organs appear normal. Upper abdominal bowel loops are normal in caliber. IMPRESSION: There are several nonspecific small nodules within the lung parenchyma located peripherally, both within the right and left hemithorax. In this clinical circumstance early pulmonary metastatic disease is suspected. The small nodules would likely not be visible by PET-CT scanning Dictated by: Johnnie Owen M.D. on 09/14/2022 at 16:28 Approved by: Johnnie Owen M.D. on 09/14/2022 at 16:41
[2022-09-14 15:50] VITALS: BP 195/106; PULSE 79; O2SAT 100
[2022-09-14 15:53] VITALS: BP 171/86; PULSE 84; O2SAT 98
[2022-09-14] MEDS: OXYCODONE IR 5 MG TABLET 10 MG PO (16:57)
[2022-09-14 17:48] LABS: Cancer (Carbohydrate) Ag 19-9 QNS
[2022-09-14 18:12] LABS: Carcinoembryonic Antigen 17.9 ng/mL (0.1-3.0)
== END 2022-09-14 17:10 | disposition home or self-care (01) ==
PROVIDERS: Emergency Medicine; Emergency Provider Nurse Practitioner Critical Care Medicine; Family Provider Family Medicine; PCP Physician Assistant
DX: K86.89 Other specified diseases of pancreas (principal); C78.7 Secondary malignant neoplasm of liver and intrahepatic bile duct; R91.1 Solitary pulmonary nodule; K57.90 Diverticulosis of intestine, part unspecified, without perforation or abscess without bleeding
CPT/HCPCS: 36415; 71260; 74177; 76705; 80053; 81001; 82378; 82550; 83605; 83690; 83735; 84145; 84484; 85025; 85610; 86140; 96360; 96361; 99284; 99285; Q9967

== ENCOUNTER 2022-10-24 14:11 | Day surgery (SDC) | payer OTHER, SELFPAY ==
[2022-10-23 10:54] VITALS: BMI 28.7
[2022-10-24] VITALS (8 sets, daily range): BP systolic 93–131; BP diastolic 61–84; PULSE 69–89; RESP 14–24; TEMP 36.3–36.6; O2SAT 95–98; BMI 28.7
--- NOTE | 2022-10-24 | DI.RAD.S_ITS ---
PROCEDURE: XR CHEST 1V INDICATIONS: PORT-A-CATH TECHNIQUE: One view of the chest was acquired. COMPARISON: [facility] ([facility]), CR, XR CHEST 2V, 09/26/2021, 16:08. FINDINGS: Surgical changes and devices: There is a right-sided Port-A-Cath in place. Lungs and pleura: Lung volumes are low with vascular crowding. No pleural effusions or pneumothorax. Mediastinum: Mediastinal contours appear normal. Heart size is normal. Bones and chest wall: No suspicious bony lesions. Overlying soft tissues appear unremarkable. IMPRESSION: 1. Low lung volumes with vascular crowding 2. Right-sided Port-A-Cath. Dictated by: Tc Triana M.D. on 10/25/2022 at 9:18 Approved by: Tc Triana M.D. on 10/25/2022 at 9:20
[2022-10-24 15:34] LABS: COVID19 -Nasal RAPID Negative (Negative)
--- NOTE | 2022-10-24 16:00 | PM.HP.1 ---
History of Present Illness History of Present Illness Date Patient Seen: 10/24/22 Time Patient Seen: 16:00 [place] [facility] [place] 52M with metastatic pancreatic cancer here for port a cath placement. No prior indewelling central venous catheters. He has malignant obstructive jaundice. Patient History Medical History Essential (primary) hypertension (~2016) Hearing loss History of recurrent ear infection Surgical History Anesthesia History of adenoidectomy History of ear surgery History of elbow surgery (~2014) History of hernia repair (~2005) History of placement of ear tubes History of tympanoplasty Family & Social History Family History Father History of heart disease Stroke Grandmother Cancer Grandmother Liver cancer Other Adrenal gland cancer Social History: household members spouse Tobacco & Substance use: Smoking Status Former smoker alcohol intake former alcohol intake frequency holiday/special occasion Substance Use Type does not use Meds Home Medications and Allergies Home Medications Medication Instructions Recorded Confirmed Type losartan 50 mg tablet 50 mg PO DAILY #30 tabs 07/06/22 10/23/22 Rx cyclobenzaprine 10 mg tablet 10 mg PO TID PRN muscle spasm #30 08/20/22 10/23/22 Rx tabs oxycodone 5 mg tablet 5 mg PO TID PRN pain #30 tabs 09/14/22 10/23/22 Rx magnesium citrate 150 ml PO BID PRN constipation 09/17/22 10/23/22 Rx #296 mL sertraline 25 mg tablet 25 mg PO .Q AM #30 tabs 09/17/22 10/23/22 Rx fluorouracil 2.5 gram/50 mL See Rx Instructions .Route 10/18/22 10/23/22 Rx intravenous solution .COMPLEX CHEMOTHERAPY #1 device Allergies Allergy/AdvReac Type Severity Reaction Status Date / Time lisinopril Allergy Unknown Verified 09/17/22 09:12 Exam Vital Signs (past 8 hours): - 10/24/22 14:56 Temperature 97.5 F L Pulse Rate 85 Respiratory Rate 22 Blood Pressure 131/84 Pulse Oximetry 95 Oxygen Delivery Method Room Air Oxygen Delivery Method Room Air Narrative Exam Narrative: Gen-Adult man alert uncomfortable Chest-Non labored resp Abdomen-Soft non tender Ext-Extensive jaundice Objective Labs Labs: Laboratory Results - last 24 hr 10/24/22 14:52 SARS-CoV-2 (PCR) Negative Assessment & Plan Assessment and plan (1) Pancreatic cancer metastasized to liver: Status: Acute Assessment & Plan narrative: 52M with metastatic pancreatic cancer here for port a cath placement. Overview of operation was discussed with the patient. Operative risks including bleeding, infection, pneumothorax, embolism were discussed. Questions have been answered and he gives his written and verbal consent to proceed. Time Spent With Patient Critical Care time: I spent a total of [] minutes of critical care time on this patient's care today; this time is exclusive of procedural time.
--- NOTE | 2022-10-24 16:12 | SUR.OPER ---
Supine on padded OR bed, head on pillow, arms padded and tucked at sides, legs uncrossed, safety belt at thigh, tape over blanket over lower legs .
--- NOTE | 2022-10-24 16:12 | PM.OP.1 ---
Operative Date/Time/Diagnoses Date of procedure: 10/24/22 Time of procedure: 16:13 Pre-op diagnosis: Metastatic pancreatic cancer Post-op diagnosis: same Procedure & Clinicians Procedure: Port a cath placement Same procedure as scheduled: Yes Indications: Metastatic pancreatic cancer Surgeon: Celestine Wood Anesthesia Type: General Operative Notes Findings: Tip of the catheter within the SVC Specimen(s): none sent Estimated Blood Loss (mL): 10 Procedure in detail: Patient was brought to the operating room placed supine on table. Bilateral lower extremity compressive devices were applied. General anesthesia was induced and he was intubated with an LMA. He was then prepped and draped in usual sterile fashion. Time-out was performed ensure the correct patient procedure necessary equipment within the operating room. He received 2 g of Ancef prior to incision. Under ultrasound guidance the right internal jugular vein was accessed under direct visualization. The guidewire was then threaded through the needle. Its placement was then confirmed using fluoroscopy. The dilator was then placed over the guidewire. The catheter was then inserted through the sheath. Placement was again confirmed with fluoroscopy. A subcutaneous pocket was made in the right chest wall. The tunneler device was used to move the catheter from the neck to the chest pocket. The port was attached after it was primed with heparined saline. The port was tested to ensure that it flushed easily and had good blood return. The port was then secured to the underlying fascia using interupted 0 Prolene suture. Hemostasis was achieved. The wound was irrigated with sterile saline. The subcutaneous tissues were reapproximated with the 3 0 Vicryl and then skin closed with 4-0 Monocryl. The skin was sealed with Dermabond. Patient tolerated procedure well. The sponge and instrument count at the end operation was correct. Patient emerged from general anesthesia was extubated and taken to the postoperative care unit in stable condition Complications: none Post-operative Condition: stable Disposition: same day surgery
[2022-10-24] MEDS: CEFAZOLIN 2 GM/100 ML PREMIX 100 ML IV (16:27)
[2022-10-24] MEDS: HEPARIN 5,000 UNIT, SODIUM CHLORIDE 0.9% 50 ML IV (16:48)
[2022-10-24] MEDS: BUPIVACAINE 0.25% (PF) VIAL 30 ML INJ (16:48)
[2022-10-24] MEDS: OXYCODONE IR 5 MG TABLET PO (18:37)
--- NOTE | 2022-10-24 18:41 | SUR.PHASEII ---
Pt ready for discharge. at bedside. [place] at 8:50pm. Due to weather and patient diagnosis status pt resting in stretcher prior to DC.
--- NOTE | 2022-10-24 20:30 | SUR.PHASEII ---
192 Pt discharged to home with . Pt able to stand and transfer self to . Denied new dizziness, nausea or pain. Tolerated pudding and water. Medicated with 5mg Oxycodone for abdominal pain, pt taking this med at home.
== END 2022-10-24 19:20 | disposition home or self-care (01) ==
PROVIDERS: Family Provider Family Medicine; PCP Physician Assistant; Referring Provider Surgery; Visit Provider Surgery
PROC: (CPT 36561; principal; 2022-10-24 16:15)
DX: C25.9 Malignant neoplasm of pancreas, unspecified (principal); Z20.822 Contact with and (suspected) exposure to COVID-19; K72.90 Hepatic failure, unspecified without coma
CPT/HCPCS: 36561; 71045; 87635; C9803; C1788; J0690; J1644; J2704; J3010